=== PATIENT | female | born 2000 ===

== ENCOUNTER → 2022-12-02 | Outpatient (CLI) | payer BC ==
[2022-12-02 22:01] LABS: Bun/Creatinine Ratio 14.2 (12.0-20.0); Calcium, Blood 9.2 mg/dL (8.5-10.1); Creatinine, Blood 0.78 mg/dL (0.40-1.00); Potassium, Blood 3.3 mmol/L (3.5-5.5); Thyroid Stimulating Hormone 4.46 uIU/mL (0.360-4.800)
[2022-12-03 12:36] LABS: Magnesium, Blood 2.1 mg/dL (1.6-2.4)
== END | disposition home or self-care (01) ==
LOC: LAB 16:53 → LAB SHORT 16:53
PROVIDERS: Student in an Organized Health Care Education/Training Program
DX: E03.9 Hypothyroidism, unspecified (principal); E87.6 Hypokalemia
CPT/HCPCS: 80048; 83735; 84443

== ENCOUNTER → 2023-02-26 | Outpatient (CLI) | payer BC ==
[2023-03-01 03:40] LABS: A/G RATIO 1.6 (1.2-2.2); BILIRUBIN, TOTAL 0.3 mg/dL (0.0-1.2); CALCIUM, SERUM 9.2 mg/dL (8.7-10.2); CREATININE, SERUM 0.68 mg/dL (0.57-1.00); GLOBULIN, TOTAL 2.7 g/dL (1.5-4.5); POTASSIUM, SERUM 4.1 mmol/L (3.5-5.2)
== END ==
LOC: LAB 16:10 → LAB SHORT 16:10
PROVIDERS: Student in an Organized Health Care Education/Training Program
DX: E03.9 Hypothyroidism, unspecified (principal); E87.6 Hypokalemia
CPT/HCPCS: 80053; 84443